=== PATIENT | female | born 1990 | race Caucasian/White ===

== ENCOUNTER → 2020-08-11 11:00 | Outpatient (CLI) | payer OTHER, SELFPAY ==
--- NOTE | ~2020-08-11 | US_ITS ---
EXAMINATION: US OB >= 14 weeks Fetus DATE: 08/11/2020 11:33 INDICATION: Second trimester bleeding. TECHNIQUE: Real-time transabdominal obstetric ultrasound. FINDINGS: No prior studies for comparison. There is a single living fetus in breech presentation. The placenta is posterior without placenta pr evia. Placental margin is 4 cm to the cervix. cardiac activity and movement is noted with a heart rate of 143 beats per minute. T he amniotic fluid volume is normal subjectively. The following biometric data were obtained: BPD: 44mm corresponds to gestational age 19 weeks 3 days. Head circumference: 172mm corresponds to gestational age 19 weeks 5 days. Abdominal circumference: 151mm corresponds to gestational age 20 weeks 2 days. Femur length: 30mm corresponds to gestational age 19 weeks 2 days. Estimated weight: 315grams +/- 47grams.] IMPRESSION: 1. Single living intrauterine in breech presentation with an estimated gestational age of 19 weeks 5 days by current ultrasound. 2. Normal placenta. Placental margin is 4 cm to the cervix. Reviewed, dictated and finalized at location A. ATURE SET BUILDER IMPRESSION: 1. Single living intrauterine in breech presentation with an estimat ed gestational age of 19 weeks 5 days by current ultrasound. 2. Normal placenta. Placental margin is 4 cm to the cervix.
== END ==
PROVIDERS: Visit Provider Obstetrics & Gynecology
DX: O46.92 Antepartum hemorrhage, unspecified, second trimester (principal); Z3A.19 19 weeks gestation of pregnancy
CPT/HCPCS: 76805

== ENCOUNTER 2020-12-08 11:50 | Outpatient (CLI) | payer OTHER, SELFPAY ==
[2020-12-08 12:51] LABS: Partial Thromboplastin Time 26.9 SECONDS (22.3-36.8)
== END 2020-12-08 11:51 | disposition home or self-care (01) ==
LOC: ANHLAB 11:52
PROVIDERS: PCP Family Medicine; Visit Provider Obstetrics & Gynecology
DX: Z86.718 Personal history of other venous thrombosis and embolism (principal)
CPT/HCPCS: 36415; 85730

== ENCOUNTER 2020-12-08 12:54 | Outpatient (RCR) | payer OTHER, SELFPAY ==
--- NOTE | 2020-11-22 17:53 | PC.NURSE ---
Initially the patient refused ( at 1736)to do the BPP related to a childcare situation. (U/S notified) Patient has one child with her. Pt decided she would call her to help make a decision if she could stay for the BPP after RN educated her on the risks and benefits of following through with the BPP or not. Patient decided to go ahead with the BPP (at 1743) and US was called with the change in plan.
--- NOTE | ~2020-12-08 | US_ITS ---
EXAMINATION: US OB BPP wo non-stress DATE: 11/22/2020 18:13 INDICATION: Nonreactive nonstress test. Third trimester. TECHNIQUE: Real-time pelvic ultrasound was performed. COMPARISON: Ultrasound 08/11/2020 FINDINGS: There is a single living fetus in breech presentation. The placenta is posterior. heart rate i s 118 beats per minute (bpm). Biophysical profile performed by the technologist: breathing (30 sec sustained breathing in 30 minutes): 2 out of 2 movement (3 gross body movements in 30 minutes): 2 out of 2 tone (one episode of wglfsqw-xajqwjfiw-vwubhrz limb movement): 2 out of 2 Amniotic fluid pocket (2 cm): 2 out of 2 Total score: 8 out of 8 IMPRESSION: 1. Single living fetus in breech presentation. 2. Biophysical profile 8 out of 8. Reviewed, dictated and finalized at location A.
[2020-12-08 12:50] VITALS: BP 123/70; PULSE 85
== END 2020-12-27 08:51 | disposition home or self-care (01) ==
LOC: ANHOBOP 12:54
PROVIDERS: Visit Provider Obstetrics & Gynecology
DX: O24.419 Gestational diabetes mellitus in pregnancy, unspecified control (principal); Z3A.34 34 weeks gestation of pregnancy; Z3A.36 36 weeks gestation of pregnancy
CPT/HCPCS: 59025; 76819

== ENCOUNTER 2020-12-25 17:52 | Outpatient (CLI) | payer OTHER, SELFPAY ==
[2020-12-25 18:09] LABS: Hematocrit 36.7 % (37.0-47.0); Hemoglobin 12.1 g/dL (12.0-15.0); Mean Corpuscular Hemoglobin 28.1 pg (26-34); Mean Corpuscular Volume 85.3 fl (80-100); Mean Platelet Volume 10.3 fl (7.4-10.4); Platelet Count Result 228 k/mm3 (150-375); Red Cell Distribution Width 14.8 % (11.5-14.5); White Blood Count 13.2 K/mm3 (4.5-10.0)
[2020-12-25 18:20] LABS: Partial Thromboplastin Time 24.8 SECONDS (22.3-36.8)
== END 2020-12-25 17:53 | disposition home or self-care (01) ==
LOC: ANHLAB 17:54
PROVIDERS: PCP Family Medicine; Visit Provider Obstetrics & Gynecology
DX: Z01.812 Encounter for preprocedural laboratory examination (principal)
CPT/HCPCS: 36415; 85027; 85730; 86850; 86900; 86901

== ENCOUNTER 2020-12-26 06:58 | Inpatient (IN) | payer OTHER, SELFPAY ==
[2020-12-26] VITALS (125 sets, daily range): BP systolic 85–149; BP diastolic 35–120; PULSE 58–105; RESP 18; TEMP 36.4–36.8; O2SAT 98–100; BMI 45.4
--- NOTE | 2020-12-26 07:17 | LDADM ---
This patient, Shonna Heart, was admitted to Labor/Delivery/Recovery 119 on 12/26/20 at 06:58. Plans for labor, pain management and were discussed with patient. Patient/family oriented to hospital policies and general routines including ID bracelet, bed and alarms, visiting hours, pain management, procedures, bathroom and other care routines, personal items, smoking policy, room service/diet and guest tray routines, infant security routines, and visiting hours. Patient/Family are encouraged to report perceived risks to care and to ask questions if they do not understand what they are told or what they should do. See OBIX for further documentation.
[2020-12-26] MEDS: LACTATED RINGERS 1,000 ML 125 ML IV CONT ×3 (07:59→13:18)
[2020-12-26 08:24] LABS: Glucose Point of Care 70 mg/dl (65-105)
--- NOTE | 2020-12-26 08:35 | WPDOBADMIT ---
Obstetrics - Admit Note Admission Note: record reviewed. No pertinent additions to the history and/or any subsequent changes in the physical findings that are not consistent with the expected course of the were found. BSUS done fetus is vertex 3-4/cm 50/-2 will proceed with labor induction. Additions to the history and/or subsequent changes in the physical findings follow. None.
[2020-12-26] MEDS: OXYTOCIN 30 UNITS/NS 500 ML 30 UNITS/500 ML BAG IV CONT (08:45)
--- NOTE | 2020-12-26 08:58 | PM.OBPNVD ---
OB - PN: Subj Subjective Date/time seen: 12/26/20 08:58 OB - PN: Obj Data Labs Labs: Laboratory Results - last 24 hr 12/26/20 08:21 POC Capillary Glucose 70 OB - PN A/P Time Spent With Patient Time: Total time spent is greater than 50% in coordination of care (as documented) at patient's floor/unit and/or counseling patient: Exam Narrative: Exam Narrative: arom clear fluid /2
[2020-12-26 09:14] LABS: HIV 1/2 Ab P24 Ag Result Negative (Negative)
--- NOTE | 2020-12-26 10:02 | WPDANESEPP ---
Anes - Eval Pre Procedure Procedure: Operation Date: 12/26/20 09:00 Proposed Procedures Labor epidural Date/Time: 12/26/20 10:02 Surgeon: jose a Preop Diagnosis: pain during labor Pre Op Diagnosis: c/s Patient Data Age: 30 Gender: F Height: 1.73 m Weight: 135.5 kg Last Vital Signs Pulse 72 12/26/20 09:47 BP 109/64 12/26/20 09:47 Allergies Allergy/AdvReac Type Severity Reaction Status Date / Time influenza virus vacc Allergy Unknown HIVES Verified 12/17/17 19:33 trivalent, split Home Medications Medication Instructions Recorded Confirmed Type PNV cmb#95-ferrous fumarate-FA 1 tablet PO DAILY 12/13/20 12/26/20 History [] heparin (bovine) 10,000 unit BID 12/13/20 12/26/20 History insulin NPH isoph U-100 human 8 unit SUBCUT HS 12/13/20 12/26/20 History [Humulin N NPH U-100 Insulin] Laboratory Tests 12/26/20 12/26/20 07:28 08:21 POC Capillary Glucose 70 mg/dl mg/dl (65-105) HIV 1&2 Ab/P24 Ag 4thGn Negative (Negative) Patient hx anesthesia problems: none Family hx anesthesia problems: none PMFSH Past Medical History Medical History (Updated 12/26/20 @ 10:03 by Reina Molina CRNA) DVT (deep vein thrombosis) in Family History Family History (Updated 12/13/20 @ 15:41 by Eduarda Sylvester RN) Father Cancer Mother Hypertension Other H/O blood clots Social History Social History Smoking status: Never smoker Substance use: never Gender identity (if verbalized by the patient): Female Spiritual care concerns: No Exam Day of Procedure 12/26/20 10:02
[2020-12-26 13:11] LABS: Glucose Point of Care 69 mg/dl (65-105)
[2020-12-26 15:54] LABS: Glucose Point of Care 91 mg/dl (65-105)
--- NOTE | 2020-12-26 18:27 | PM.OBPRVD ---
OB - Delivery Note Procedure Delivery date: 12/26/20 Procedure: Procedures Operation Date: 12/26/20 09:00 <No data on this case meets the specified criteria> events: Gestational Diabetes Intrapartal events: None Induction method: AROM and per pitocin protocol Delivery monitor: external FHT, external uterine and internal uterine Route of delivery: Laceration Description: None Quantitative Blood Loss (ml): 140 Anesthesia type: Epidural Disposition: floor Baby Date of : 12/26/20 Time of : 18:06 Weeks of gestation at delivery: 39 gender: Female Weight (pounds): 8 Weight (ounces): 10 presentation: vertex position: Left Occiput Anterior Placenta delivery description: Spontaneous cord vessel description: 3 Vessels, Nuchal Cord, Loose and Clamped/Cut score one minute: 8 score five minutes: 9
[2020-12-26] MEDS: OXYTOCIN 30 UNITS/NS 500 ML 30 UNITS/500 ML BAG 125 UNITS IV CONT (18:38)
[2020-12-26] MEDS: WITCH HAZEL 40 PADS 1 PAD TOPICAL (20:50)
[2020-12-26] MEDS: BENZOCAINE 20% AER SPR (*SP) 56 GM CAN 1 SPRAY TOPICAL (20:50)
[2020-12-27] MEDS: IBUPROFEN 600 MG TABLET PO ×2 (04:53→16:02)
[2020-12-27 04:56] VITALS: BP 137/79; PULSE 75; RESP 16; TEMP 37.1
[2020-12-27 05:04] LABS: Hemoglobin 10.9 g/dL (12.0-15.0)
[2020-12-27 05:31] LABS: Estimated CRCL calculation 242 ml/min; Estimated Glomerular Filt Rate > 60
[2020-12-27 07:15] LABS: Mean Platelet Volume 10.9 fl (7.4-10.4); Platelet Count Result 189 k/mm3 (150-375)
[2020-12-27 08:30] VITALS: BP 129/73; PULSE 79; RESP 16; TEMP 36.6; O2SAT 97
[2020-12-27 09:00] VITALS: PULSE 66; RESP 16; O2SAT 97
--- NOTE | 2020-12-27 10:25 | PC.NURSE ---
Consult with pt., mother reports this to be 4th child to breastfeed. has been eagerly latching without difficulties or discomfort. Infant is able to freely thrust tongue past gum ridge and flange both lips. Skin is intact on both nipples, no redness and bruising noted. Reviewed feeding cues, frequencies, duration of feedings, feeding elimination flow sheet, and signs of adequate intake. Demonstrated stimulation techniques to wake for feeding. Assisted with to breast. Reviewed positioning/alignment in cross cradle, holding breast in ?U? hold and guided asymmetrical latch on. Discussed rational for each. Mother was able to latch able correctly. Infant nursed eagerly, with steady draws and frequent swallowing noted. Suggested mother stimulate while feeding to increase stimulate, increase intake and to assist with maintaining deep latch. Reviewed signs of a correct latch, effective nursing and suck swallow ratio. Infant was able to maintain latch without discomfort to mother. Demonstrated how to adjust latch more deeply while feeding if needed. Nipple care reviewed of lanolin after feedings, warm compresses as needed. Instructed mother to call out for RN assistance if she is unable to latch for feeding or she has discomfort with nursing. Mother plans on 24 hour discharge. Mother is feeding as required and waking infant to feed if needed. is waking to feed as required, with effective feedings, and is currently meeting outcomes for output, jaundice and feeding frequencies. Mother states she feels confident to continue effective at home. Reviewed transition to breast milk, signs of adequate intake, and engorgement/relief. Instructed to call ICP if intake/output less than required. Reviewed regular medications mother is taking. Information provided per Bette. Reviewed community resources on the [facility] website and in the Mom/Baby guide. Information on outpatient services provided. Mother has no further questions at this time.
[2020-12-27 11:55] VITALS: BP 129/69; PULSE 66; RESP 16; TEMP 36.8; O2SAT 97
--- NOTE | 2020-12-27 12:22 | WPDANLDPN2 ---
Anes-Prog Note L&D Date/Time: 12/27/20 12:22 Comfortable throughout: labor and delivery Neuraxial method: epidural Epidural/Spinal procedure site: clean & non-tender Neuro status: Neuro function grossly intact. Cardiovascular status: normal Respiratory status: normal Airway patency: baseline Mental status: baseline Post-Op hydration status: normal Vital Signs: Last Vital Signs Temp 36.8 C 12/27/20 11:55 Pulse 66 12/27/20 11:55 Resp 16 12/27/20 11:55 BP 129/69 12/27/20 11:55 Pulse Ox 97 12/27/20 11:55 Pain score (VAS): 2 I/O: Intake & Output 12/26/20 12/27/20 12/27/20 23:59 07:59 15:59 Intake Total 575 Output Total 303 Balance -303 575 Post-procedural complaints: none Patient feedback: Patient satisfied with anesthetic care.
[2020-12-27 15:42] VITALS: BP 132/66; PULSE 62; PULSE 66; RESP 16; RESP 18; TEMP 36.8; O2SAT 97; O2SAT 98
--- NOTE | 2020-12-27 15:49 | PC.NURSE ---
Pt requests to give herself her Lovenox this even when she gets home. She sates she has a two week supply at home.
--- NOTE | 2020-12-27 17:24 | PM.OBPNVD ---
OB - PN: Subj Subjective Date/time seen: 12/27/20 17:24 doing [facility]well desires home no complaints OB - PN: Obj Data Labs CBC & Chem 7: 12/27/20 04:34 12/27/20 04:34 Labs: Laboratory Results - last 24 hr 12/27/20 12/27/20 12/27/20 04:28 04:34 04:34 Hgb 10.9 L Hct 33.0 L Plt Count 189 MPV 10.9 H Creatinine 0.40 L Estim Creat Clear Calc 242 Estimated GFR > 60 OB - PN A/P Assessment and Plan (1) (normal spontaneous vaginal delivery): Code(s): O80 - Encounter for full-term uncomplicated delivery Status: Acute Assessment and Plan: continue with pp care. Time Spent With Patient Time: Total time spent is greater than 50% in coordination of care (as documented) at patient's floor/unit and/or counseling patient: Exam Narrative: ff below umbilicus
[2020-12-28 09:46] VITALS: BP 138/69; PULSE 72; RESP 20; TEMP 36.8; O2SAT 100
--- NOTE | 2021-01-07 12:12 | PM.OBDSVD ---
DS: Admitting Diagnosis Admitting Diagnosis iol OB - DS: Summary OB Procedures : NST and Ultrasound OB Procedures Intrapartum: Spontaneous Vag Delivery OB Procedures: : None Peripartum Data Procedures: Procedures Operation Date: 12/26/20 09:00 <No data on this case meets the specified criteria> Time Spent with Patient Time attestation: Total time spent providing and/or coordinating discharge services: DS: Data Data Completed and Pending Pending studies at discharge: Pending at discharge 12/26/20 18:10 Surgical [PTH] Routine Discharge Plan Discharge Attending physician on discharge: Mason Styles Discharging Clinician: Mason Styles Patient Disposition: Home, Self-Care Activity: may shower and pelvic rest Diet: regular Discharge Instructions: Education: Mom and Baby Guide Given to: Mother Follow-Up: Call your delivering provider's office for an appointment to be seen in: 4-6 Weeks Mom and baby [facility] follow-up appointment. Appointment Date/Time: December 28, 2020 at 9:00 am What to expect at your follow-up visit: Blood Pressure Check Physical Assessment Call [phone] if you are unable to keep your appointment time. BREAST CARE: * Wear a snug supportive bra. * For engorgement discomfort: Breast Feeding: * Apply warm moist washcloths * Express milk as needed to relieve engorgement * Wear loose clothing * For sore nipples: * Identify correct latch-on * Apply warm moist washcloths before and after nursing * Air dry nipples after nursing * May apply Lansinoh cream to nipples EPISIOTOMY/PERINEAL CARE: * Until bleeding stops, use your jane bottle after urinating * Change your pad frequently throughout the day * You may take sitz baths several times a day (fill your bathtub with warm water and soak for 20 minutes.) Do NOT bathe in the water * No tub baths until seen by your physician - You may shower ACTIVITY: * Rest as much as possible. * Do not exercise or lift anything heavier than your baby (such as laundry or other children.) * Avoid stairs or driving as much as possible. * Do not put anything into the vagina. No douching, tampons, or sexual activity until seen by physician. NOTIFY PHYSICIAN IF YOU HAVE ANY QUESTIONS OR IF ANY OF THE FOLLOWING SYMPTOMS OCCUR: * If your vaginal area becomes red, swollen, or more painful than what you have experienced in the hospital. * If your vaginal bleeding becomes foul smelling. * If your vaginal bleeding becomes more heavy than a period or if your bleeding changes from pink to bright red. However, you may pass an occasional walnut-sized clot once or twice for the first week . * If you experience a sharp, shooting pain in your calves. * If you discover a hard, reddened area on your breast or if you experience flu-like symptoms. DIET: * Eat regular, well-balanced meals. * Drink plenty of fluids daily. If , drink to thirst. Patient Instructions: Vaginal Delivery (DC), Deep Vein Thrombosis Prevention (DC) Stand Alone Forms: General Discharge Information Follow-up/Referrals: Mason Styles MD [Physician] - Discharge Medications: New enoxaparin [Lovenox] 40 mg/0.4 mL Syringe 40 mg subcut DAILY Qty: 4 RF: 2 Continued PNV cmb#95-ferrous fumarate-FA [] 28 mg iron- 800 mcg Tablet 1 tablet PO DAILY RF: 0 Discontinued heparin (bovine) 10,000 unit/mL Solution 10,000 unit BID RF: 0 Humulin N NPH U-100 Insulin 100 unit/mL Suspension 8 unit SUBCUT HS RF: 0 Date of admission: 12/26/20 06:58 Primary Care Provider: Minh,Art Scott Admitting Provider: Mason Styles Attending physician on admission: Mason Styles Condition: Stable
== END 2020-12-27 19:50 | disposition home or self-care (01) | DRG 807 ==
LOC: ANHLDR 18:33 → ANHOB2 22:11
PROVIDERS: Admitting Provider Obstetrics & Gynecology; PCP Family Medicine; Visit Provider Obstetrics & Gynecology
DX: O24.429 Gestational diabetes mellitus in childbirth, unspecified control (principal); Z37.0 Single live birth; Z3A.39 39 weeks gestation of pregnancy; O69.81X0 Labor and delivery complicated by cord around neck, without compression, not applicable or unspecified
CPT/HCPCS: 36415; 82565; 82948; 85014; 85018; 85027; 85049; 85730; 86703; 86850; 86900; 86901; 88307; A9270; G0432; J2590; J2795; J7120

== ENCOUNTER 2021-11-05 05:45 | Emergency (ER) | payer OTHER, SELFPAY ==
[2021-11-05] VITALS (10 sets, daily range): BP systolic 144–161; BP diastolic 76–95; PULSE 70–83; RESP 16–18; TEMP 36.3; O2SAT 96–100
--- NOTE | ~2021-11-05 | US_ITS ---
EXAMINATION: US abdomen limited DATE: 11/05/2021 07:30 INDICATION: Right abdominal pain. TECHNIQUE: Multiple grayscale and Doppler ultrasound images of the abdomen were obtained. COMPARISON: CT abdomen and pelvis 11/05/2021 FINDINGS: The visualized portion of the body of the pancreas is normal. There is diffuse hepatic stea tosis. There is normal flow in main portal vein. The gallbladder is distended and contains gallstones . No gallbladder wall thickening. There was a positive sonographic López sign. The common duct is no rmal and measures 4 mm. IMPRESSION: 1. Distended gallbladder with gallstones and positive sonographic López sign, consistent with acute cholecystitis. 2. Diffuse hepatic steatosis. Reviewed, dictated and finalized at location A.
--- NOTE | ~2021-11-05 | CT_ITS ---
EXAMINATION: CT abdomen pelvis wo con DATE: 11/05/2021 06:32 INDICATION: Right abdominal pain. Nausea and vomiting. TECHNIQUE: Computed tomography (CT) of the abdomen and pelvis was performed without intravenous contr ast. Automated exposure control and iterative reconstruction technique were employed. The dose-length product was 1753.52 mGy-cm. COMPARISON: None. FINDINGS: The visualized portions of the lung bases are clear without pneumonia or pleural effusion. The heart size is normal. No pericardial effusion. There is heterogeneous hepatic steatosis. The gall bladder is distended. The spleen, pancreas, adrenal glands, and kidneys are normal. There is no uroli thiasis. There is an intrauterine device in expected position. There are no dilated loops of bowel. T he appendix is normal. There is an umbilical hernia containing fat. There are no pathologically enlar ged lymph nodes. There is no free intraperitoneal fluid. There is mild thoracolumbar spondylosis. IMPRESSION: 1. Gallbladder distention, which may be secondary to fasting. Correlate with physical exam for eviden ce of acute cholecystitis. 2. Hepatic steatosis. 3. Umbilical hernia containing fat. Reviewed, dictated and finalized at location A. IMPRESSION: 1. Gallbladder distention, which may be secondary to fasting. Correlate with ph ysical exam for evidence of acute cholecystitis. 2. Hepatic steatosis. 3. Umbilical hernia containing fat.
[2021-11-05] MEDS: SODIUM CHLORIDE 0.9% IV 1,000 ML 999 ML IV CONT (06:07)
[2021-11-05] MEDS: ONDANSETRON INJ 4 MG/2 ML VIAL IV PUSH ×2 (06:08→09:23)
--- NOTE | 2021-11-05 06:24 | ED.ABDPAIN ---
HPI - Abdominal Pain General Chief Complaint: Abdominal Pain <Dangelo Stein MD - Last Filed: 11/05/21 07:33> Stated Complaint: RLQ abdominal pain <Dangelo Stein MD - Last Filed: 11/05/21 07:33> Time Seen by Provider: 11/05/21 05:56 <Dangelo Stein MD - Last Filed: 11/05/21 07:33> Source: patient <Dangelo Stein MD - Last Filed: 11/05/21 07:33> History of Present Illness HPI narrative: Patient presents with right-sided abdominal pain. Reports symptoms started this morning have gotten progressively severe and associated with nausea and vomiting. Her pain is sharp, constant, worse with moving her body worse with pothole in the car no radiation. She denies any diarrhea she denies any blood bile or melena she had chills but did not take a temperature she denies chest pain shortness of breath lightheadedness or dizziness she denies any diarrhea or urinary symptoms or vaginal bleeding. <Dangelo Stein MD - Last Filed: 11/05/21 07:33> Related Data Home Medications: Home Medications Medication Instructions Recorded Confirmed vit no.95-ferrous 1 tablet PO DAILY 12/13/20 12/26/20 fumarate 28 mg-folic acid 800 mcg tablet () <Dangelo Stein MD - Last Filed: 11/05/21 07:33> Allergies/Adverse Reactions: Allergies Allergy/AdvReac Type Severity Reaction Status Date / Time influenza virus vacc Allergy Unknown HIVES Verified 11/05/21 05:49 trivalent, split <Dangelo Stein MD - Last Filed: 11/05/21 07:33> Review of Systems Review of Systems: CONSTITUTIONAL: Denies fever, chills, or sweats. EYES: Denies visual changes, redness, or discharge. ENT: Denies rhinorrhea, congestion, sore throat, or otalgia. CARDIOVASCULAR: Denies chest pain, palpitations, or edema. RESPIRATORY: Denies cough or dyspnea. GASTROINTESTINAL: Reports abdominal pain with nausea and vomiting GENITOURINARY: Denies dysuria or hematuria. SKIN: Denies rash or itching. MUSCULOSKELETAL: Denies back pain, joint pain, or myalgia. NEUROLOGIC: Denies headache, numbness, dizziness, or weakness. PSYCHIATRIC: Denies anxiety or depression. <Dangelo Stein MD - Last Filed: 11/05/21 07:33> All systems reviewed & are unremarkable except as noted in HPI and below <Dangelo Stein MD - Last Filed: 11/05/21 07:33> PMFSH Past Medical History Medical History: Medical History DVT (deep vein thrombosis) in Gestational diabetes Morbid obesity <Dangelo Stein MD - Last Filed: 11/05/21 07:33> Surgical History Surgical History: Surgical History History of wisdom tooth extraction <Dangelo Stein MD - Last Filed: 11/05/21 07:33> Family History Family History: Family History Father Cancer Mother Hypertension Other H/O blood clots <Dangelo Stein MD - Last Filed: 11/05/21 07:33> Social History Social History: Social History Smoking status: Never smoker Alcohol intake: never Substance use: never Living arrangements: with family Additional living arrangements comments: with her and 4 children Occupation/Education: other Additional occupation/education comments: stay at home mother Gender identity (if verbalized by the patient): Female Spiritual care concerns: No <Dangelo Stein MD - Last Filed: 11/05/21 07:33> Exam Narrative: GENERAL: Well-appearing, well-nourished, and in no acute distress. HEAD: Normocephalic, atraumatic. EYES: PERRLA and EOMI. ENT: Nares clear, no rhinorrhea or epistaxis. Mucous membranes moist. NECK: Supple. No masses. No JVD CHEST: Clear to auscultation. No respiratory distress. No wheezes rales or rhonchi HEART: Regular rate and rhythm. No murmur heard. N
[2021-11-05 06:26] LABS: Basophils Absolute Auto 0.1 K/mm3 (0.0-0.1); Basophils Percent Auto 0.4 % (0.2-1.2); Eosinophils Absolute Auto 0.1 K/mm3 (0-0.3); Eosinophils Percent Auto 0.9 % (0-4.4); Hematocrit 40.1 % (37.0-47.0); Hemoglobin 13.6 g/dL (12.0-15.0); Immature Granulocyte Absolute 0.06 K/mm3 (0.00-0.031); Immature Granulocyte Percent A 0.5 % (0-0.5); Lymphocytes Absolute Auto 2.41 K/mm3 (0.9-3.2); Lymphocytes Percent Auto 21.5 % (18.3-44.2); Mean Corpuscular HGB Conc 33.9 g/dl (32-36); Mean Corpuscular Hemoglobin 28.5 pg (26-34); Mean Corpuscular Volume 83.9 fl (80-100); Mean Platelet Volume 10.2 fl (7.4-10.4); Monocytes Absolute Auto 0.7 K/mm3 (0.1-0.6); Neutrophils Absolute Auto 7.9 K/mm3 (1.3-6.7); Neutrophils Percent Auto 70.7 % (45.5-73.1); Platelet Count Result 253 k/mm3 (150-375); Red Blood Count 4.78 M/mm3 (4.2-5.4); Red Cell Distribution Width 13.3 % (11.5-14.5); White Blood Count 11.2 K/mm3 (4.5-10.0)
[2021-11-05 06:38] LABS: Alanine Aminotransferase 40 U/L (6-35); Albumin Level 4.6 g/dL (3.5-5.1); Alkaline Phosphatase 69 U/L (38-126); Anion Gap 9 mmol/L (8-16); Aspartate Amino Transferase 53 U/L (14-36); Bilirubin,Total 0.7 mg/dL (0.2-1.3); Blood Urea Nitrogen 13 mg/dL (7-17); Calcium 8.9 mg/dL (8.4-10.2); Carbon Dioxide 25 mmol/L (22-30); Chloride 104 mmol/L (98-107); Estimated CRCL calculation 238 ml/min; Estimated Glomerular Filt Rate > 60; Glucose 172 mg/dL (65-110); Lipase 125 U/L (23-300); Potassium 4.3 mmol/L (3.4-5.0); Sodium 138 mmol/L (137-145)
--- NOTE | 2021-11-05 09:27 | PC.NURSE ---
Nurse Practitioner from OR at bedside at this time.
[2021-11-05] MEDS: AMOXICILLIN/CLAVULANATE K 875-125 MG TAB 1 TABLET PO (10:43)
--- NOTE | 2021-11-05 15:34 | PM.CNGS ---
Assessment and Plan Assessment and plan (1) Cholecystitis with cholelithiasis: Code(s): K80.10 - Calculus of gallbladder with chronic cholecystitis without obstruction Status: Acute Assessment and Plan: Imaging reviewed and discussed with the patient in detail. She has cholelithiasis with gallbladder distention and a positive López's sign on ultrasound, consistent with cholecystitis. Her abdominal pain has resolved with treatment in the ER. She is also just under 3 weeks after being diagnosed with COVID, which increases surgical risk. Currently, we would recommend trying to avoid any non-urgent surgery until at least 6-8 weeks after having COVID. She also would have a higher risk of DVT with her history. We would recommend that she be discharged home with another 5 days of oral antibiotics, which Augmentin would likely be the best choice in view of her . I also instructed her to follow a strict low fat diet until follow-up. We will repeat a CBC 5 days after antibiotics are completed and have her follow-up with Dr. Cartwright in our office in 4 weeks to re-evaluate possibly setting her up for an outpatient laparoscopic cholecystectomy, possible open, under general anesthesia by Dr. Cartwright. Description of the procedure, risks, benefits, expected outcomes, and expected recovery were discussed with the patient in detail. All questions were answered. She is agreeable to this plan. We discussed reasons to return to the ER. She would like to avoid any narcotic medications due to poor tolerance with Burkett in the past. Recommended she take Tylenol as needed for pain. I also instructed her to call her PCP to discuss her medications and taking baby aspirin versus an anticoagulant, given the recent COVID diagnosis with her risk for DVT. (2) Morbid obesity: Code(s): E66.01 - Morbid (severe) obesity due to excess calories Status: Acute Assessment and Plan: Encouraged weight loss and low fat diet. She was given a gallbladder sheet that reviews the surgery and gives diet instructions. This would be beneficial in regards to weight loss as well. (3) Mother currently breast-feeding: Code(s): Z39.1 - Encounter for care and examination of lactating mother Status: Acute Assessment and Plan: Discussed the risks of with the antibiotic, Augmentin is generally considered reasonable to continue but there is some that is excreted in breast milk. It is less than 10% RID (relative dose), which is considered okay for . Discussed to confirm with her [employer] if they would recommend to continue or pumping and dumping during her antibiotic course. Additional Plan I have discussed the patient's case and plan of care with Dr. Cartwright. History of Present Illness Consult details Consult date: 11/05/21 Reason for consult: gallstones (possible acute cholecystitis) Requesting physician: Prabhjot Espinal MD Narrative: This is a 31-year-old female who presented to the ER with complaints of RUQ abdominal pain. She reports eating a deli meat sandwich on a hoagie bun last night for dinner and around bedtime she noticed some acid reflux. She went to sleep and woke up suddenly around 2:30 am with abdominal pain. She reports this was a sharp pain in the RUQ that radiated to her mid back. She reports nausea and one episode of NBNB vomiting. She tried to take a warm shower without any relief in her symptoms. The pain continued to worsen and she came into the ER for evaluation. She reports having this pain at least 2 times in the past few years that subsided spontaneously with time at home. She also reports being seen in the ER at an outside facility for gastroenteritis 5 years ago and was told that on her CT scan had abnormalities of her gallbladder with gallstones, but nothing needed to be done urgently. Today in the ER, her CT scan of the abdomen and pelvis showed ga
== END 2021-11-05 10:49 | disposition home or self-care (01) ==
PROVIDERS: Emergency Provider Emergency Medicine; PCP Family Medicine
DX: K80.10 Calculus of gallbladder with chronic cholecystitis without obstruction (principal); R11.2 Nausea with vomiting, unspecified; E66.01 Morbid (severe) obesity due to excess calories
CPT/HCPCS: 36415; 74176; 76705; 80053; 81025; 83690; 85025; 96361; 96374; 96375; 99284; A9270; J2405; J7030